=== PATIENT | female | born 1990 | race Caucasian/White ===

== ENCOUNTER → 2017-01-05 | Outpatient (CLI) | payer OTHER | END | disposition home or self-care (01) | LOC: PCVCIMAG 08:36 | PROVIDERS: ATTEND Internal Medicine Cardiovascular Disease | DX: R00.2 Palpitations (principal); R00.0 Tachycardia, unspecified | CPT/HCPCS: 93306 ==

== ENCOUNTER → 2017-05-05 | Outpatient (CLI) | payer OTHER ==
--- NOTE | 2017-05-05 13:50 | PCVCIMAG ---
APPROVED REPORT Study performed: 05/05/2017 08:13:24 EXAM: Comprehensive 2D, Doppler, and color-flow Echocardiogram Patient Location: Echo lab Status: routine BSA: 2.09 BP: 122/78 mmHg Rhythm: NSR Other Information Study Quality: Adequate Indications Dyspnea Palpitations Chest Pain 2D Dimensions LVEF(%): 44.12 (>50%) IVSd: 9.68 (7-11mm) LVDd: 41.34 mm PWd: 9.38 (7-11mm) LVDs: 32.43 (25-40mm) Left Atrium: 37.93 (27-40mm) Aortic Root: 30.49 mm Patel's LVEF: 44.12 % Volumes Left Atrial Volume (Systole) Single Plane 4CH: 58.41 mLSingle Plane 2CH: 80.72 mL LA ESV Index: 34.00 mL/m2 Aortic Valve AoV Peak Luis Angel.: 1.21 m/s AO Peak Gr.: 5.86 mmHgLVOT Max P.88 mmHg LVOT Max V: 0.85 m/s Mitral Valve E/A Ratio: 1.6 MV Decel. Time: 276.15 ms MV E Max Luis Angel.: 0.71 m/s MV A Luis Angel.: 0.45 m/s IVRT: 110.73 ms Pulmonary Valve PV Peak Luis Angel.: 0.90 m/sPV Peak Gr.: 3.22 mmHg Pulmonary Vein P Vein S: 0.25 m/sP Vein A: 0.40 m/s P Vein D: 0.54 m/sP Vein A Dur.: 114.2 msec P Vein S/D Ratio: 0.46 Tricuspid Valve TR Peak Luis Angel.: 2.14 m/s TR Peak Gr.: 18.40 mmHg Left Ventricle The left ventricle is normal size. There is normal LV segmental wall motion. There is normal left ventricular wall thickness. Left ventricular systolic function is normal. The left ventricular ejection fraction is within the normal range. LVEF is 65%. The left ventricular diastolic function is normal. Right Ventricle The right ventricle is normal size. The right ventricular systolic function is normal. Atria The left atrium size is normal. The right atrium size is normal. Aortic Valve The aortic valve is normal in structure. No aortic regurgitation is present. There is no aortic valvular stenosis. Mitral Valve The mitral valve is normal in structure. There is mild mitral valve regurgitation noted. No evidence of mitral valve stenosis. Tricuspid Valve The tricuspid valve is normal in structure. Trace tricuspid valve regurgitation noted with PAP of 25 mmHg. Pulmonic Valve The pulmonary valve is normal in structure. There is mild pulmonic valvular regurgitation. Great Vessels The aortic root is normal in size. IVC is normal in size and collapses with >50% inspiration Pericardium There is no pericardial effusion. <Conclusion> The left ventricle is normal size. There is normal left ventricular wall thickness. LVEF is 65%. The left ventricular diastolic function is normal. The right ventricle is normal size. The left atrium size is normal. The aortic valve is normal in structure. There is mild mitral valve regurgitation noted. Trace tricuspid valve regurgitation noted with PAP of 25 mmHg. There is no pericardial effusion.
== END | disposition home or self-care (01) ==
LOC: PCVCIMAG 08:03
PROVIDERS: ATTEND Internal Medicine Cardiovascular Disease
DX: I08.1 Rheumatic disorders of both mitral and tricuspid valves (principal); I47.1 Supraventricular tachycardia; C81.90 Hodgkin lymphoma, unspecified, unspecified site; Z79.899 Other long term (current) drug therapy
CPT/HCPCS: 80061; 93306; G0463

== ENCOUNTER → 2018-12-26 | Outpatient (CLI) | payer OTHER ==
--- NOTE | 2018-12-26 16:48 | PCVCIMAG ---
APPROVED REPORT Study performed: 12/26/2018 14:04:12 EXAM: Comprehensive 2D, Doppler, and color-flow Echocardiogram Patient Location: Echo lab Room #: [id number]: routine BSA: 2.19 HR: 80 bpmBP: 116/68 mmHg Rhythm: NSR Other Information Study Quality: Good Indications Palpitations Chemo follow-up 28 wks 2D Dimensions IVSd: 12.30 (7-11mm)LVOT Diam: 19.00 (18-24mm) LVDd: 46.94 mm PWd: 12.43 (7-11mm)Ascending Ao: 26.18 (22-36mm) LVDs: 32.70 (25-40mm) Left Atrium: 45.97 (27-40mm) Aortic Root: 29.72 mm LV Single Plane 4CH: 55.81 % LV Single Plane 2CH: 59.23 % Biplane EF: 56.0 % Volumes Left Atrial Volume (Systole) Single Plane 4CH: 60.40 mLSingle Plane 2CH: 73.66 mL LA ESV Index: 33.00 mL/m2 Aortic Valve AoV Peak Luis Angel.: 1.43 m/s AO Peak Gr.: 8.20 mmHgLVOT Max P.70 mmHg LVOT Max V: 0.96 m/s KOJO Vmax: 1.94 cm2 Mitral Valve E/A Ratio: 1.0 MV Decel. Time: 189.84 ms MV E Max Luis Angel.: 0.91 m/s MV A Luis Angel.: 0.87 m/s IVRT: 34.60 ms TDI E/Lateral E': 9.10E/Medial E': 11.38 Medial E' Luis Angel.: 0.08 m/s Lateral E' Luis Angel.: 0.10 m/s Pulmonary Valve PV Peak Luis Angel.: 1.00 m/sPV Peak Gr.: 4.[address] End Vmax: 1.18 m/s Pulmonary Vein P Vein S: 0.43 m/sP Vein A: 0.41 m/s P Vein D: 0.39 m/sP Vein A Dur.: 121.1 msec P Vein S/D Ratio: 1.10 Tricuspid Valve TR Peak Luis Angel.: 1.82 m/sRAP Estimate: 7.00 mmHg TR Peak Gr.: 13.21 mmHg Left Ventricle The left ventricle is normal size. There is normal LV segmental wall motion. Borderline concentric left ventricular hypertrophy. Left ventricular systolic function is normal. The left ventricular ejection fraction is within the normal range. LVEF is 55-60%. The left ventricular diastolic function is normal. Right Ventricle The right ventricle is normal size. The right ventricular systolic function is normal. Atria Left atrium is borderline dilated. The right atrium size is normal. Aortic Valve The aortic valve is normal in structure. No aortic regurgitation is present. There is no aortic valvular stenosis. Mitral Valve The mitral valve is normal in structure. Mild mitral regurgitation. No evidence of mitral valve stenosis. Tricuspid Valve The tricuspid valve is normal in structure. Trace tricuspid regurgitation. Unable to assess PA pressure. Pulmonic Valve The pulmonary valve is normal in structure. Trace pulmonic regurgitation. Great Vessels The aortic root is normal in size. IVC is normal in size and collapses >50% with inspiration. Pericardium There is no pericardial effusion. <Conclusion> The left ventricle is normal size. LVEF is 55-60%. The left ventricular diastolic function is normal. The right ventricle is normal size. Left atrium is borderline dilated. Mild mitral regurgitation. The aortic valve is normal in structure. The tricuspid valve is normal in structure. The aortic root is normal in size. There is no pericardial effusion.
== END | disposition home or self-care (01) ==
LOC: PCVCIMAG 15:15
PROVIDERS: ATTEND Internal Medicine Cardiovascular Disease
DX: Z09 Encounter for follow-up examination after completed treatment for conditions other than malignant neoplasm (principal); O99.413 Diseases of the circulatory system complicating pregnancy, third trimester; I34.0 Nonrheumatic mitral (valve) insufficiency; R00.2 Palpitations
CPT/HCPCS: 93306